=== PATIENT | female | born 1995 | race Caucasian/White ===

== ENCOUNTER 2018-08-22 11:39 | Emergency (ER) | payer MEDICAID ==
[~2018-08-22] VITALS: Ht 154.9 cm; Wt 54.9 kg
[2018-08-22 11:43] VITALS: BP 117/71; Ht 154.9 cm; Wt 54.9 kg
[2018-08-22 12:15] LABS: BASOPHIL % 0.2 % (0-2); PLATELET COUNT 216 x10^3mcL (130-400); RED CELL DISTRIBUTION WIDTH 11.8 % (11.5-14.5)
== END 2018-08-22 13:58 | disposition home or self-care (01) ==
LOC: ED 11:39
PROVIDERS: Emergency Medicine
DX: O20.0 Threatened abortion (principal)
CPT/HCPCS: 36415

== ENCOUNTER 2018-08-24 11:50 | Emergency (ER) | payer MEDICAID ==
[~2018-08-24] VITALS: Ht 154.9 cm; Wt 54.9 kg
[2018-08-24 11:57] VITALS: Ht 154.9 cm; Wt 54.9 kg
[2018-08-24 14:16] VITALS: BP 112/74
== END 2018-08-24 14:16 | disposition home or self-care (01) ==
LOC: ED 11:50
DX: O20.0 Threatened abortion (principal)